=== PATIENT | female | born 1980 | race Caucasian/White ===

== ENCOUNTER 2017-08-16 14:52 | Inpatient (IN) | payer MEDICARE ==
[2017-08-16 16:00] LABS: ABS Basophils 0 10^3/ul (0-0.2); ABS Eosinophils 0 10^3/ul (0-0.6); ABS Lymphocytes 1.6 10^3/ul (1.0-4.8); ABS Monocytes 0.5 10^3/ul (0-0.8); ABS Neutrophils 3.3 10^3/ul (1.5-7.7); ABS Nucleated RBC 0 10^3/ul; Eosinophil % 0.4 % (0-6); Hematocrit 37 % (35-47); Hemoglobin 12.1 g/dl (12.0-16.0); Lymphocyte % 29.6 % (25-47); Mean Corpuscular HGB Conc 33 g/dl (31-36); Mean Corpuscular Hemoglobin 29 pg (27-31); Mean Corpuscular Volume 87 fL (80-97); Mean Platelet Volume 8.1 um3 (7.4-10.4); Nucleated Red Blood Cells % 0; Platelet Count 191 10^3/ul (150-450); Red Blood Count 4.18 10^6/ul (4.0-5.4); Red Cell Distribution Width 15 % (10.5-15); White Blood Count 5.5 10^3/ul (3.5-10.8)
[2017-08-16 16:19] LABS: EGFR Non-African American 110.4 (>60)
[2017-08-16 16:53] LABS: Urine Appearance Clear; Urine Blood Negative (Negative); Urine Color Straw; Urine Ketones Negative (Negative); Urine Protein Negative (Negative); Urine Specific Gravity 1.003 (1.010-1.030); Urine Urobilinogen Negative (Negative)
--- NOTE | 2017-08-16 21:38 | ED ---
Rosa Elizabeth Gabriel, scribed for Nazario Mahoney MD on 08/16/17 at 1603 . Psychiatric Complaint - HPI Summary HPI Summary: This patient is a 37 year old F BIBA to [facility] with a chief complaint of anxiety after attempting to detox from prescriptions. She recently had a falling out with her fianc/rep payee and moved in with her sister. Her sister is now her rep payee. Pt has been staying in a hotel for the past 3 days after being kicked out of her apartment. Today the pts sister called the police claiming she has suicidal thoughts and needed to be seen for mental health. Patient denies SI and HI. LNMP 2 weeks ago. - History Of Current Complaint Chief Complaint: EDMentalHealth Time Seen by Provider: 08/16/17 15:22 Hx Obtained From: Patient Onset/Duration: Still Present Timing: Constant Severity Initially: Moderate Severity Currently: Moderate Character: Manic Aggravating Factor(s): Recent Stress, Medication Non-compliance Related History: Positive For: Prior Psychiatric Issues Has Suicidal: Denies: Thoughts, With A Plan Has Homicidal: Denies: Thoughts, With A Plan - Allergies/Home Medications Allergies/Adverse Reactions: Allergies Allergy/AdvReac Type Severity Reaction Status Date / Time No Known Allergies Allergy Verified 08/16/17 15:36 Home Medications: Home Medications LORazepam TAB(*) [Ativan 0.5 MG TAB (*)] 0.5 mg PO TID PRN 08/16/17 [History Confirmed 08/16/17] Prazosin CAP* [Minipress CAP*] 1 mg PO DAILY 08/16/17 [History Confirmed ] Sertraline* [Zoloft*] 25 mg PO DAILY 08/16/17 [History Confirmed 08/16/17] PMH/Surg Hx/FS Hx/Imm Hx Cardiovascular History: Denies: Hx Pacemaker/ICD Respiratory History: Denies: Hx Chronic Obstructive Pulmonary Disease (COPD) GI History: Denies: Hx Irritable Bowel Musculoskeletal History: Denies: Hx Orthopedic Injury Psychiatric History: Reports: Hx Anxiety, Hx Depression, Hx Post Traumatic Stress Disorder, Other Psychiatric Issues/Disorders - sleep disorder Infectious Disease History: No Infectious Disease History: Denies: Traveled Outside the [place] in Last 30 Days - Family History Known Family History: Negative: Respiratory Disease, Seizure Disorder - Social History Occupation: Unemployed Lives: With Family Alcohol Use: Rare Substance Use Type: Reports: Marijuana Substance Use Comment - Amount & Last Used: medical marijuana smokes topical and oral Smoking Status (MU): Former Smoker Review of Systems Negative: Slurred Speech Psychological: Other - NEGATIVE SI and HI All Other Systems Reviewed And Are Negative: Yes Physical Exam - Summary Physical Exam Summary: Appearance: Well appearing, no pain distress, manic affect, tearful Skin: warm, dry, reflects adequate perfusion Neurotic excoriations on face and lower back Head/face: normal Eyes: EOMI, TIMOTHY ENT: normal Neck: supple, non-tender Respiratory: CTA, breath sounds present Cardiovascular: RRR, pulses symmetrical Abdomen: non-tender, soft Bowel Sounds: present Musculoskeletal: normal, strength/ROM intact Neuro: normal, sensory motor intact, A&Ox3 Triage Information Reviewed: Yes Vital Signs On Initial Exam: Initial Vitals Temp Pulse Resp BP Pulse Ox 99.2 F 95 23 125/97 99 08/16/17 15:30 08/16/17 15:30 08/16/17 15:30 08/16/17 15:30 08/16/17 15:30 Vital Signs Reviewed: Yes Diagnostics - Vital Signs Vital Signs Temp Pulse Resp BP Pulse Ox 08/16/17 15:30 99.2 F 95 23 125/97 99 - Laboratory Lab Results: Lab Results 08/16/17 08/16/17 08/16/17 Range/Units 15:18 15:18 15:45 WBC (3.5-10.8) 10^3/ul RBC (4.0-5.4) 10^6/ul Hgb (12.0-16.0) g/dl Hct (35-47) % MCV (80-97) fL MCH (27-31) pg MCHC (31-36) g/dl RDW (10.5-15) % Plt Count (150-450) 10^3/ul MPV (7.4-10.4) um3 Neut % (Auto) (38-83) % Lymph % (Auto) (25-47) % Thurston % (Auto) (0-7) % Eos % (Auto) (0-6) % Baso % (Auto) (0-2) % Absolute Neuts (auto) (1.5-7.7) 10^3/ul Absolute Lymphs (auto) (1.0-4.8) 10^3/ul Absolute Monos (auto) (0-0.8) 10^3/ul Absolute Eos (auto) (0-0.6) 10^3/ul Absolute Basos (auto) (0-0.2) 10^3/ul Absolute Nucleated RBC 10^3/ul Nucleated RBC % Sodium 140 (139-145) mmol/L Potassium 3.4 L (3.5-5.0) mmol/L Chloride 104 (101-111) mmol/L Carbon Dioxide 23 (22-32) mmol/L Anion Gap 13 H (2-11) mmol/L BUN 6 (6-24) mg/dL Creatinine 0.61 (0.51-0.95) mg/dL Est GFR ( Amer) 141.9 (>60) Est GFR (Non-Af Amer) 110.4 (>60) BUN/Creatinine Ratio 9.8 (8-20) Glucose 103 H (70-100) mg/dL Calcium 9.4 (8.6-10.3) mg/dL Total Bilirubin 0.30 (0.2-1.0) mg/dL AST 25 (13-39) U/L ALT 29 (7-52) U/L Alkaline Phosphatase 67 (34-104) U/L Total Protein 7.1 (6.4-8.9) g/dL Albumin 3.9 (3.2-5.2) g/dL Globulin 3.2 (2-4) g/dL Albumin/Globulin Ratio 1.2 (1-3) TSH 0.60 (0.34-5.60) mcIU/mL Beta HCG, Quant < 0.60 mIU/mL Urine Color Straw Urine Appearance Clear Urine pH 6.0 (5-9) Ur Specific [place] 1.003 L (1.010-1.030) Urine Protein Negative (Negative) Urine Ketones Negative (Negative) Urine Blood Negative (Negative) Urine Nitrate Negative (Negative) Urine Bilirubin Negative (Negative) Urine Urobilinogen Negative (Negative) Ur Leukocyte Esterase Negative (Negative) Urine Glucose Negative (Negative) Salicylates < 2.50 (<30) mg/dL Urine Opiates Screen None detected (None Detect) Acetaminophen < 15 mcg/mL Ur Barbiturates Screen None detected (None Detect) Ur Phencyclidine Scrn None detected (None Detect) Ur Amphetamines Screen None detected (None Detect) U Benzodiazepines Scrn None detected (None Detect) Urine Cocaine Screen None detected (None Detect) U Cannabinoids Screen Presumptive positive A (None Detect) Serum Alcohol 96 H (<10) mg/dL 08/16/17 Range/Units 15:45 WBC 5.5 (3.5-10.8) 10^3/ul RBC 4.18 (4.0-5.4) 10^6/ul Hgb 12.1 (12.0-16.0) g/dl Hct 37 (35-47) % MCV 87 (80-97) fL MCH 29 (27-31) pg MCHC 33 (31-36) g/dl RDW 15 (10.5-15) % Plt Count 191 (150-450) 10^3/ul MPV 8.1 (7.4-10.4) um3 Neut % (Auto) 60.7 (38-83) % Lymph % (Auto) 29.6 (25-47) % Thurston % (Auto) 8.7 H (0-7) % Eos % (Auto) 0.4 (0-6) % Baso % (Auto) 0.6 (0-2) % Absolute Neuts (auto) 3.3 (1.5-7.7) 10^3/ul Absolute Lymphs (auto) 1.6 (1.0-4.8) 10^3/ul Absolute Monos (auto) 0.5 (0-0.8) 10^3/ul Absolute Eos (auto) 0 (0-0.6) 10^3/ul Absolute Basos (auto) 0 (0-0.2) 10^3/ul Absolute Nucleated RBC 0 10^3/ul Nucleated RBC % 0 Sodium (139-145) mmol/L Potassium (3.5-5.0) mmol/L Chloride (101-111) mmol/L Carbon Dioxide (22-32) mmol/L Anion Gap (2-11) mmol/L BUN (6-24) mg/dL Creatinine (0.51-0.95) mg/dL Est GFR ( Amer) (>60) Est GFR (Non-Af Amer) (>60) BUN/Creatinine Ratio (8-20) Glucose (70-100) mg/dL Calcium (8.6-10.3) mg/dL Total Bilirubin (0.2-1.0) mg/dL AST (13-39) U/L ALT (7-52) U/L Alkaline Phosphatase (34-104) U/L Total Protein (6.4-8.9) g/dL Albumin (3.2-5.2) g/dL Globulin (2-4) g/dL Albumin/Globulin Ratio (1-3) TSH (0.34-5.60) mcIU/mL Beta HCG, Quant mIU/mL Urine Color Urine Appearance Urine pH (5-9) Ur Specific [place] (1.010-1.030) Urine Protein (Negative) Urine Ketones (Negative) Urine Blood (Negative) Urine Nitrate (Negative) Urine Bilirubin (Negative) Urine Urobilinogen (Negative) Ur Leukocyte Esterase (Negative) Urine Glucose (Negative) Salicylates (<30) mg/dL Urine Opiates Screen (None Detect) Acetaminophen mcg/mL Ur Barbiturates Screen (None Detect) Ur Phencyclidine Scrn (None Detect) Ur Amphetamines Screen (None Detect) U Benzodiazepines Scrn (None Detect) Urine Cocaine Screen (None Detect) U Cannabinoids Screen (None Detect) Serum Alcohol (<10) mg/dL Result Diagrams: 08/16/17 15:45 08/16/17 15:45 Lab Statement: Any lab studies that have been ordered have been reviewed, and results considered in the medical decision making process. Re-Evaluation - Re-Evaluation First Eval Re-Evaluation Time: 21:35 Change: Worse Comment: The patients sister called and stated the dairy manager from the hotel is not allowing her to return do to her marijuana use in the hotel. The sister is taking care of her cat tonight and is removing herself as her rep payee. Course/Dx - Course Course Of Treatment: PT WITH ETOH IN SYSTEM BUT NO CLINICAL INTOX. EVAL PERFORMED. UNABLE TO GET COLLATERAL FROM SISTER. SISTER STATES PT UNABLE TO GO BACK TO HOTEL SHE HAS BEEN SMOKING POT, STAVE MACHINE TENDER WONT LET HER BACK. SISTER ALSO HAD HERSELF REMOVED HER REP PAYEE. TO OBSERVE THRU NIGHT, DISPO IN AM. SIGNED OUT TO DR MCALLISTER. - Differential Dx/Clinical Impression Provider Diagnosis: Mood disorder, PTSD (post-traumatic stress disorder), Neurotic excoriations - Physician Notifications Discussed Care Of Patient With: Good Mcallister Discharge - Sign-Out/Discharge Documenting (check all that apply): Sign-Out Patient Signing out patient TO: Good Mcallister - Discharge Plan Condition: Stable Discharge Disposition Comment: Sign out to Dr Mcallister Referrals: No Primary Care Phys,NOPCP [Primary Care Provider] - - Billing Disposition and Condition Condition: STABLE The documentation as recorded by the Rosa salas Gabriel accurately reflects the service I personally performed and the decisions made by me, Nazario Mahoney MD.
--- NOTE | 2017-08-16 22:23 | ED ---
Domingo Elizabeth Rebecca, scribed for Good Mcallister MD on 08/16/17 at 2213 . Progress - Progress Note Progress Note: Pt was signed out by Dr. Mahoney, pending disposition, awaiting MHE. Course/Dx - Course Course Of Treatment: Pt was signed out by Dr. Mahoney, pending disposition, awaiting MHE. Upon completion of MHE and consultation with Dr. Thornton, it has been determined that the pt will be admitted with Dx of depression. - Diagnoses Provider Diagnoses: Depression Discharge - Sign-Out/Discharge Documenting (check all that apply): Discharge - Admitted to psych - Discharge Plan Condition: Stable Disposition: PSYCHIATRIC FACILITY[facility] Referrals: No Primary Care Phys,NOPCP [Primary Care Provider] - The documentation as recorded by the Domingo salas Rebecca accurately reflects the service I personally performed and the decisions made by Esvin jose Abdul, MD.
[2017-08-16] MEDS ORDERED: LORazepam TAB(*) 0.5 MG PO PRN (23:40)
[2017-08-16] MEDS ORDERED: Acetaminophen TAB* 325 MG PO PRN (23:40)
[2017-08-16] MEDS ORDERED: Al Hydrox/Mg Hydrox/Simet LIQ* 30 ML UDC PO PRN (23:40)
[2017-08-16] MEDS ORDERED: Prazosin CAP* 1 MG ONE (23:41)
[2017-08-16] MEDS ORDERED: LORazepam TAB(*) 0.5 MG ONE (23:41)
[2017-08-16] MEDS ORDERED: Sertraline* 25 MG TAB ONE (23:42)
[2017-08-17] MEDS: Vitamin THERAPEUTIC TAB PO SCH (08:43)
[2017-08-17] MEDS ORDERED: Prazosin CAP* 1 MG PO SCH ×2 (09:00→21:00)
[2017-08-17] MEDS: Gabapentin CAP(*) 100 MG PO SCH ×3 (12:50→21:55)
[2017-08-17] MEDS: Sertraline* 50 MG TAB PO SCH (12:51)
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
[2017-08-17] MEDS: hydrOXYzine HCL TAB* 50 MG PO PRN (21:54)
[2017-08-17] MEDS: Prazosin CAP* 1 MG PO SCH (21:55)
[2017-08-18] MEDS: Gabapentin CAP(*) 100 MG PO SCH ×3 (08:09→21:26)
[2017-08-18] MEDS: Sertraline* 50 MG TAB PO SCH (08:09)
[2017-08-18] MEDS: Vitamin THERAPEUTIC TAB PO SCH (13:05)
--- NOTE | 2017-08-18 16:34 | PN ---
Subjective - Subjective Subjective: She woke up feeling "horrible," blames the combination of prazosin, gabapentin and hydroxyzine and requests decreasing the dose of prazosin. Mood is good, she denies SI. Per staff, she is adherent to unit's routines. Objective - Appearance Appearance: Healthy Appearing Dysmorphic Features: No Hygiene: Normal Grooming: Well Kept - Behavior Psychomotor Activities: Normal Exhibits Abnormal Movement: No - Attitude and Relatedness Attitude and Relatedness: Appropriate Eye Contact: Fair - Speech Quality: Unpressured Latencies: Normal Quantity: Appropriate - Mood Patient's Decription of Mood: "Okay" - Affect Observed Affect: Non-labile Affect Consistent with: Euthymia - Thought Process Patient's Thought Process: Coherent, Goal Directed Thought Content: No Passive Wish, No Suicidal Planning, No Homicidal Ideation, No Paranoid Ideation - Sensorium Experiencing Hallucinations: No, Sensorium is Clear - Level of Consciousness Level of Consciousness: Alert Orientation: Yes Intact - Impulse Control Impulse Control: Intact - Insight and Judgement Insight and Judgement: Fair - Group Participation Particating in Group Activities: Yes - Medication Management Medication Management Adherence: Yes Assessment - Assessment Merits Inpatient Hospitalization: Consolidate Improvements, For Discharge Planning Inpatient DSM-V Dx: F43.10 Clinical Impression: Stabilizing in this structured setting with subjective improvement in mood, absence of SI. Complains of grogginess upon waking. She needs continued admission for consolidation. Plan - Plan Treatment Plan: Name: MATTIE MANSFIELD Birthdate: 1980 [id number] Continued Medication Management: Continue Outpt Medication Medications: Current Medications Acetaminophen (Tylenol Tab*) 650 mg PO Q4H PRN PRN Reason: PAIN or TEMP > 101 F Al Hydrox/Mg Hydrox/Simethicone (Maalox Plus*) 30 ml PO Q4H PRN PRN Reason: INDIGESTION Gabapentin (Neurontin Cap(*)) 100 mg PO TID [facility] Last Admin: 08/18/17 13:06 Dose: 100 mg Hydroxyzine HCl (Atarax Tab*) 50 mg PO Q4H PRN PRN Reason: anxiety/agitation Last Admin: 08/17/17 21:54 Dose: 50 mg Multivitamins (Theragran Tab*) 1 tab PO DAILY [facility] Last Admin: 08/18/17 13:05 Dose: 1 tab Prazosin HCl (Minipress Cap*) 4 mg PO BEDTIME [facility] Last Admin: 08/17/17 21:55 Dose: 4 mg Sertraline HCl (Zoloft*) 50 mg PO DAILY [facility] Last Admin: 08/18/17 08:09 Dose: 50 mg - Discharge Plan Discharge Plan: Outpatient Follow Up Outpatient Program: [id number]
[2017-08-18] MEDS: Prazosin CAP* 1 MG PO SCH (21:25)
[2017-08-18] MEDS: hydrOXYzine HCL TAB* 50 MG PO PRN (22:08)
[2017-08-19] MEDS: Sertraline* 50 MG TAB PO SCH (08:41)
[2017-08-19] MEDS: Gabapentin CAP(*) 100 MG PO SCH ×3 (08:43→21:27)
[2017-08-19] MEDS: Vitamin THERAPEUTIC TAB PO SCH ×2 (09:43→12:34)
[2017-08-19] MEDS: Prazosin CAP* 1 MG PO SCH (21:27)
[2017-08-20] MEDS: Sertraline* 50 MG TAB PO SCH (08:16)
[2017-08-20] MEDS: Gabapentin CAP(*) 100 MG PO SCH ×3 (08:16→20:24)
[2017-08-20] MEDS: Vitamin THERAPEUTIC TAB PO SCH (09:30)
--- NOTE | 2017-08-20 16:05 | PN ---
Subjective - Subjective Service Type: 41222 Hosp care 25 min moderate complexity Subjective: Patient is reading DSM 5 upon approach and states she is interested in exclusion criteria for excoriation d/o. Patient has a list of things to ask about. Patient endorses efficacy from gabapentin and denies side effects. She states she has relief from night terrors with prazosin but requests ativan for nightmares. Patient states she wants to wants to have a family meeting with her sister, Regi, in order to remain amicable. She also is concerned about being able to keep her cat when discharged. She becomes tearful during topic of her cat. Patient is observed to be social with select peers. She is participating in unit routines and in behavioral control. Pcat Instructor left voicemail for her outpatient PCP, Dr Stefany Hollins. Also, attempted to call her previous outpatient psychiatrist, Dr Liyah Gil but am having difficulty connecting to a live person. Objective - Appearance Appearance: Obese Dysmorphic Features: Yes Hygiene: Normal Grooming: Well Kept - Behavior Psychomotor Activities: Normal Exhibits Abnormal Movement: No - Attitude and Relatedness Attitude and Relatedness: Needy Eye Contact: Good - Speech Quality: Unpressured Latencies: Normal Quantity: Appropriate - Mood Patient's Decription of Mood: "Sad" - Affect Observed Affect: Expansive Affect Consistent with: Euthymia - Thought Process Patient's Thought Process: Coherent, Goal Directed, Circumstantial Thought Content: No Passive Wish, No Suicidal Planning, No Homicidal Ideation, No Paranoid Ideation - Sensorium Experiencing Hallucinations: No, Sensorium is Clear Type of Hallucinations: Visual: No, Auditory: No, Command: No - Level of Consciousness Level of Consciousness: Alert Orientation: Yes Intact, Yes Orientated to Time, Yes Orientated to Place, Yes Orientated to Person - Impulse Control Impulse Control: Tenuous - Insight and Judgement Insight and Judgement: Poor - Group Participation Particating in Group Activities: Yes - Medication Management Medication Management Adherence: Yes Assessment - Assessment Merits Inpatient Hospitalization: For Immediate Safety, For Stabilization, Consolidate Improvements, Pending Safe DC Plan Inpatient DSM-V Dx: F43.10 Clinical Impression: 37yo white female, , undomiciled and receives disability income. Patient recently relocated to [place] from [facility]. She was living with her sister but was evicted from an apartment and hotel. She and her siblings have an extensive trauma history, including involvement in child pornography and cults. Patient has been engaging in increased substance use and self-harm behaviors. She is unsafe to care for herself at this time. Plan - Plan Treatment Plan: Name: MATTIE MANSFIELD Birthdate: 1980 [id number] continue acute intensive psychiatric treatment. decrease to q30min observation and allow computer use and staff pass. Continue to attempt to gain psychiatric and medical history from previous providers. discharge planning to include outpatient referrals. Continued Medication Management: Different Medication Medications: Current Medications Acetaminophen (Tylenol Tab*) 650 mg PO Q4H PRN PRN Reason: PAIN or TEMP > 101 F Al Hydrox/Mg Hydrox/Simethicone (Maalox Plus*) 30 ml PO Q4H PRN PRN Reason: INDIGESTION Gabapentin (Neurontin Cap(*)) 100 mg PO TID [facility] Last Admin: 08/20/17 14:08 Dose: 100 mg Hydroxyzine HCl (Atarax Tab*) 50 mg PO Q4H PRN PRN Reason: anxiety/agitation Last Admin: 08/18/17 22:08 Dose: 50 mg Multivitamins (Theragran Tab*) 1 tab PO DAILY [facility] Last Admin: 08/20/17 09:30 Dose: Not Given Prazosin HCl (Minipress Cap*) 4 mg PO BEDTIME [facility] Last Admin: 08/19/17 21:27 Dose: 4 mg Sertraline HCl (Zoloft*) 50 mg PO DAILY [facility] Last Admin: 08/20/17 08:16 Dose: 50 mg - Discharge Plan Discharge Plan: Outpatient Follow Up Outpatient Program: [facility]
[2017-08-20] MEDS: Prazosin CAP* 1 MG PO SCH (20:25)
[2017-08-21] MEDS: Sertraline* 50 MG TAB PO SCH (10:01)
[2017-08-21] MEDS: Gabapentin CAP(*) 100 MG PO SCH ×3 (10:01→21:36)
--- NOTE | 2017-08-21 11:27 | PN ---
MHU: Group Therapy Note - Service Type Service Type: [id number] Group Psychotherapy - Cognitive Behavioral Group Therapy ( CBT):Patient was attentive and participatory in CBT programming this morning, and remained in good behavioral control. Patient expressed positive insights regarding relevant treatment interventions and goals.
[2017-08-21] MEDS: Vitamin THERAPEUTIC TAB PO SCH (12:22)
--- NOTE | 2017-08-21 13:57 | PN ---
Subjective - Subjective Service Type: 91968 Hosp care 25 min moderate complexity Subjective: Spoke with patient's most recent PCP in [facility], Dr Stefany Hollins at [phone]. She reports a history of patient's episodes of classic radha symptoms and obsessive compulsive behaviors. She states Mattie tends to minimize psychiatric hospitalizations and makes impulsive and significant life decisions. She verifies that patient's previous S.O., Alex was a supportive person to her. She was not aware that Mattie is no longer in [place]. Patient is cooperative and in behavioral control. She is adherent to unit routines and pleasant with staff and peers. She is tearful when discussing relationships but able to utilize therapeutic interventions. Objective - Appearance Appearance: Obese Dysmorphic Features: Yes Hygiene: Normal Grooming: Well Kept - Behavior Psychomotor Activities: Normal Exhibits Abnormal Movement: No - Attitude and Relatedness Attitude and Relatedness: Cooperative Eye Contact: Good - Speech Quality: Unpressured Latencies: Normal Quantity: Appropriate - Mood Patient's Decription of Mood: "Anxious" - Affect Observed Affect: Expansive Affect Consistent with: Dysphoria - Thought Process Patient's Thought Process: Coherent, Goal Directed, Circumstantial Thought Content: Yes Paranoid Ideation, No Passive Wish, No Suicidal Planning, No Homicidal Ideation - Sensorium Experiencing Hallucinations: No, Sensorium is Clear Type of Hallucinations: Visual: No, Auditory: No, Command: No - Level of Consciousness Level of Consciousness: Alert Orientation: Yes Intact, Yes Orientated to Time, Yes Orientated to Place, Yes Orientated to Person - Impulse Control Impulse Control: Intact - in supportive setting - Insight and Judgement Insight and Judgement: Fair - Group Participation Particating in Group Activities: Yes - Medication Management Medication Management Adherence: Yes Assessment - Assessment Merits Inpatient Hospitalization: For Immediate Safety, For Stabilization, Consolidate Improvements Inpatient DSM-V Dx: F43.10 Clinical Impression: 37yo white female, , undomiciled and receives disability income. Patient recently relocated to [place] from [facility]. She was living with her sister but was evicted from an apartment and hotel. She and her siblings have an extensive trauma history, including involvement in child pornography and cults. Patient has been engaging in increased substance use and self-harm behaviors. She is unsafe to care for herself at this time. Plan - Plan Treatment Plan: Name: MATTIE MANSFIELD Birthdate: 1980 [id number] continue acute intensive psychiatric treatment. decrease to q30min observation and allow computer use and staff pass. Patient declines suggestion of mood stabilizer medication. discharge planning to include outpatient referrals. Continued Medication Management: Start Medication Medications: Current Medications Acetaminophen (Tylenol Tab*) 650 mg PO Q4H PRN PRN Reason: PAIN or TEMP > 101 F Al Hydrox/Mg Hydrox/Simethicone (Maalox Plus*) 30 ml PO Q4H PRN PRN Reason: INDIGESTION Gabapentin (Neurontin Cap(*)) 100 mg PO TID [facility] Last Admin: 08/21/17 10:01 Dose: 100 mg Hydroxyzine HCl (Atarax Tab*) 50 mg PO Q4H PRN PRN Reason: anxiety/agitation Last Admin: 08/18/17 22:08 Dose: 50 mg Multivitamins (Theragran Tab*) 1 tab PO DAILY [facility] Last Admin: 08/21/17 12:22 Dose: 1 tab Prazosin HCl (Minipress Cap*) 4 mg PO BEDTIME [facility] Last Admin: 08/20/17 20:25 Dose: 4 mg Sertraline HCl (Zoloft*) 50 mg PO DAILY [facility] Last Admin: 08/21/17 10:01 Dose: 50 mg - Discharge Plan Discharge Plan: Outpatient [facility]
[2017-08-21] MEDS: Prazosin CAP* 1 MG PO SCH (21:36)
[2017-08-22] MEDS: Gabapentin CAP(*) 100 MG PO SCH ×3 (10:00→21:34)
[2017-08-22] MEDS: Sertraline* 50 MG TAB PO SCH (10:00)
[2017-08-22] MEDS: Vitamin THERAPEUTIC TAB PO SCH (10:00)
--- NOTE | 2017-08-22 17:40 | PN ---
Subjective - Subjective Service Type: 66370 Hosp care 15 min low complexity Subjective: Patient presents as calm and euthymic. She is easily distressed and tearful when discussing topics that are loosely related to her ex-fiancee, Alex. Patient has many questions about local resources and how to acclimate to this community. Patient continues to endorse desire to have an amicable with her sister, Regi, and requests that we organize a family meeting or phone conference. She requests small dose of lorazepam at bedtime for nightmares. Mattie strongly advocates for herself that she does not use alcohol or marijuana when taking prescription medications. Objective - Appearance Appearance: Obese Dysmorphic Features: Yes Hygiene: Normal Grooming: Well Kept - Behavior Psychomotor Activities: Normal Exhibits Abnormal Movement: No - Attitude and Relatedness Eye Contact: Good - Speech Quality: Unpressured Latencies: Normal Quantity: Appropriate - Mood Patient's Decription of Mood: "Anxious" - Affect Observed Affect: Expansive Affect Consistent with: Euthymia - Thought Process Patient's Thought Process: Tangential, Circumstantial Thought Content: No Passive Wish, No Suicidal Planning, No Homicidal Ideation, No Paranoid Ideation - Sensorium Experiencing Hallucinations: No, Sensorium is Clear Type of Hallucinations: Visual: No, Auditory: No, Command: No - Level of Consciousness Level of Consciousness: Alert Orientation: Yes Intact, Yes Orientated to Time, Yes Orientated to Place, Yes Orientated to Person - Impulse Control Impulse Control: Tenuous - Insight and Judgement Insight and Judgement: Fair - Group Participation Particating in Group Activities: Yes - Medication Management Medication Management Adherence: Yes Assessment - Assessment Merits Inpatient Hospitalization: For Immediate Safety, Consolidate Improvements , Pending Safe DC Plan Inpatient DSM-V Dx: F43.10 Clinical Impression: 37yo white female, , undomiciled and receives disability income. Patient recently relocated to [place] from [facility]. She was living with her sister but was evicted from an apartment and hotel. She and her siblings have an extensive trauma history, including involvement in child pornography and cults. Patient has been engaging in increased substance use and self-harm behaviors. She is unsafe to care for herself at this time. Plan - Plan Treatment Plan: Name: MATTIE MANSFIELD Birthdate: 1980 [id number] continue acute intensive psychiatric treatment. decrease to q30min observation and allow computer use and staff pass. Patient continues to decline suggestion of mood stabilizer medication. add lorazepam at bedtime per patient request. discharge planning to include outpatient referrals. Continued Medication Management: Different Medication Medications: Current Medications Acetaminophen (Tylenol Tab*) 650 mg PO Q4H PRN PRN Reason: PAIN or TEMP > 101 F Al Hydrox/Mg Hydrox/Simethicone (Maalox Plus*) 30 ml PO Q4H PRN PRN Reason: INDIGESTION Gabapentin (Neurontin Cap(*)) 100 mg PO TID [facility] Last Admin: 08/22/17 15:18 Dose: 100 mg Hydroxyzine HCl (Atarax Tab*) 50 mg PO Q4H PRN PRN Reason: anxiety/agitation Last Admin: 08/18/17 22:08 Dose: 50 mg Multivitamins (Theragran Tab*) 1 tab PO DAILY [facility] Last Admin: 08/22/17 10:00 Dose: 1 tab Prazosin HCl (Minipress Cap*) 4 mg PO BEDTIME [facility] Last Admin: 08/21/17 21:36 Dose: 4 mg Sertraline HCl (Zoloft*) 50 mg PO DAILY [facility] Last Admin: 08/22/17 10:00 Dose: 50 mg - Discharge Plan Discharge Plan: Outpatient Follow Up Outpatient Program: [facility]
[2017-08-22] MEDS: Prazosin CAP* 1 MG PO SCH (21:34)
[2017-08-23] MEDS: Sertraline* 50 MG TAB PO SCH (08:06)
[2017-08-23] MEDS: Gabapentin CAP(*) 100 MG PO SCH ×3 (08:06→21:00)
--- NOTE | 2017-08-23 11:15 | PN ---
MHU: Group Therapy Note - Service Type Service Type: [id number] Group Psychotherapy - Cognitive Behavioral Group Therapy ( CBT):Patient was attentive and participatory in CBT programming this morning, and remained in good behavioral control. Patient expressed positive insights regarding relevant treatment interventions and goals.
[2017-08-23] MEDS: Vitamin THERAPEUTIC TAB PO SCH (14:06)
--- NOTE | 2017-08-23 16:17 | PN ---
MHU: Group Therapy Note - Service Type Service Type: [id number] Group Psychotherapy - Medication Education Group: Patient was attentive and participatory in group, and remained in good behavioral control. Patient expressed positive insights regarding relevant treatment interventions. Patient stated understanding of material discussed and had appropriate questions.
[2017-08-23] MEDS: LORazepam TAB(*) 1 MG PO PRN (20:59)
[2017-08-23] MEDS: Prazosin CAP* 1 MG PO SCH (21:00)
[2017-08-24] MEDS: Gabapentin CAP(*) 100 MG PO SCH ×3 (08:39→21:55)
[2017-08-24] MEDS: Vitamin THERAPEUTIC TAB PO SCH (08:40)
[2017-08-24] MEDS: Sertraline* 50 MG TAB PO SCH (08:40)
--- NOTE | 2017-08-24 13:14 | PN ---
MHU: Group Therapy Note - Service Type Service Type: 20509 Group Psychotherapy - Cognitive Behavioral Group Therapy ( CBT):Patient was attentive and participatory in CBT programming this morning, and remained in good behavioral control. Patient expressed positive insights regarding relevant treatment interventions and goals.
--- NOTE | 2017-08-24 15:48 | PN ---
Subjective - Subjective Date of Service: 08/24/17 Service Type: 85550 Hosp care 35 min high complexity Subjective: Patient expresses anxiety about meeting with her sister today. She perseverates on perceived abandonment and her sister unfairly calling the police. Patient and her sister, Regi, met with presence of Mere Araujo, [employer]ATOR [employer] and machine sign writer. Patient was calm and in behavioral control. At times, she was elevated and able to express self calmly with staff prompts and suggestions. Both patient and her sister identified steps to repairing their relationship. Objective - Appearance Appearance: Obese Dysmorphic Features: Yes Hygiene: Normal Grooming: Well Kept - Behavior Psychomotor Activities: Normal Exhibits Abnormal Movement: No - Attitude and Relatedness Attitude and Relatedness: Cooperative Eye Contact: Good - Speech Quality: Pressured Latencies: Normal Quantity: Appropriate - Mood Patient's Decription of Mood: "Anxious" - Affect Observed Affect: Expansive Affect Consistent with: Dysphoria - Thought Process Patient's Thought Process: Circumstantial Thought Content: No Passive Wish, No Suicidal Planning, No Homicidal Ideation, No Paranoid Ideation - Sensorium Experiencing Hallucinations: No, Sensorium is Clear Type of Hallucinations: Visual: No, Auditory: No, Command: No - Level of Consciousness Level of Consciousness: Alert Orientation: Yes Intact, Yes Orientated to Time, Yes Orientated to Place, Yes Orientated to Person - Impulse Control Impulse Control: Intact - Insight and Judgement Insight and Judgement: Fair - Group Participation Particating in Group Activities: Yes - Medication Management Medication Management Adherence: Yes Assessment - Assessment Merits Inpatient Hospitalization: For Immediate Safety, For Stabilization, Consolidate Improvements, Pending Safe DC Plan Inpatient DSM-V Dx: F43.10 Clinical Impression: 37yo white female, , undomiciled and receives disability income. Patient recently relocated to [place] from [facility]. She was living with her sister but was evicted from an apartment and hotel. She and her siblings have an extensive trauma history, including involvement in child pornography and cults. Patient has been engaging in increased substance use and self-harm behaviors. She is responding well to medications and therapeutic interventions. Discharge tentative, 08/27/17. Plan - Plan Treatment Plan: Name: MATTIE MANSFIELD Birthdate: 1980 [id number] continue acute intensive psychiatric treatment. decrease to q30min observation and allow computer use and staff pass. Patient continues to decline suggestion of mood stabilizer medication. add lorazepam at bedtime per patient request. discharge planning to include outpatient referrals. Continued Medication Management: Start Medication Medications: Current Medications Acetaminophen (Tylenol Tab*) 650 mg PO Q4H PRN PRN Reason: PAIN or TEMP > 101 F Al Hydrox/Mg Hydrox/Simethicone (Maalox Plus*) 30 ml PO Q4H PRN PRN Reason: INDIGESTION Gabapentin (Neurontin Cap(*)) 100 mg PO TID [facility] Last Admin: 08/24/17 14:22 Dose: 100 mg Hydroxyzine HCl (Atarax Tab*) 50 mg PO Q4H PRN PRN Reason: anxiety/agitation Last Admin: 08/18/17 22:08 Dose: 50 mg Lorazepam (Ativan Tab(*)) 1 mg PO BEDTIME PRN PRN Reason: ANXIETY Last Admin: 08/23/17 20:59 Dose: 1 mg Multivitamins (Theragran Tab*) 1 tab PO DAILY [facility] Last Admin: 08/24/17 08:40 Dose: 1 tab Prazosin HCl (Minipress Cap*) 4 mg PO BEDTIME [facility] Last Admin: 08/23/17 21:00 Dose: 4 mg Sertraline HCl (Zoloft*) 50 mg PO DAILY [facility] Last Admin: 08/24/17 08:40 Dose: 50 mg - Discharge Plan Discharge Plan: Outpatient Follow Up Outpatient Program: [facility]
[2017-08-24] MEDS: LORazepam TAB(*) 1 MG PO PRN (21:54)
[2017-08-24] MEDS: Prazosin CAP* 1 MG PO SCH (21:54)
[2017-08-25] MEDS: Gabapentin CAP(*) 100 MG PO SCH ×3 (08:14→20:27)
[2017-08-25] MEDS: Sertraline* 50 MG TAB PO SCH (08:14)
[2017-08-25] MEDS: Vitamin THERAPEUTIC TAB PO SCH (08:15)
[2017-08-25] MEDS: LORazepam TAB(*) 1 MG PO PRN (20:27)
[2017-08-25] MEDS: Prazosin CAP* 1 MG PO SCH (20:27)
[2017-08-25] MEDS: hydrOXYzine HCL TAB* 50 MG PO PRN (21:16)
[2017-08-26] MEDS: Gabapentin CAP(*) 100 MG PO SCH ×3 (08:38→20:57)
[2017-08-26] MEDS: Sertraline* 50 MG TAB PO SCH (08:39)
[2017-08-26] MEDS: Vitamin THERAPEUTIC TAB PO SCH (08:39)
[2017-08-26] MEDS: Prazosin CAP* 1 MG PO SCH (20:57)
[2017-08-26] MEDS: LORazepam TAB(*) 1 MG PO PRN (20:59)
[2017-08-27] MEDS: Vitamin THERAPEUTIC TAB PO SCH (08:25)
[2017-08-27] MEDS: Gabapentin CAP(*) 100 MG PO SCH ×3 (08:25→20:49)
[2017-08-27] MEDS: Sertraline* 50 MG TAB PO SCH (08:25)
--- NOTE | 2017-08-27 12:00 | PN ---
Subjective - Subjective Service Type: 88010 Hosp care 25 min moderate complexity Subjective: Patient is tearful, agitated and circumstantial about interactions with her sister, Regi over the weekend. She expresses fear that the order of protection is going to prevent housing options. Patient is also concerned that her sister will not give her cat back to her, which is a significant source of comfort for her. Otherwise, patient is eager to establish services in [facility]. Objective - Appearance Appearance: Obese Dysmorphic Features: Yes Hygiene: Normal Grooming: Well Kept - Behavior Psychomotor Activities: Normal Exhibits Abnormal Movement: No - Attitude and Relatedness Attitude and Relatedness: Cooperative Eye Contact: Good - Speech Quality: Pressured Latencies: Normal Quantity: Copious - Mood Patient's Decription of Mood: "Terrible" - Affect Observed Affect: Expansive Affect Consistent with: Dysphoria - Thought Process Patient's Thought Process: Circumstantial Thought Content: No Passive Wish, No Suicidal Planning, No Homicidal Ideation, No Paranoid Ideation - Sensorium Experiencing Hallucinations: No, Sensorium is Clear Type of Hallucinations: Visual: No, Auditory: No, Command: No - Level of Consciousness Level of Consciousness: Alert Orientation: Yes Intact, Yes Orientated to Time, Yes Orientated to Place, Yes Orientated to Person - Impulse Control Impulse Control: Intact - in structured settin - Insight and Judgement Insight and Judgement: Fair - Group Participation Particating in Group Activities: Yes - Medication Management Medication Management Adherence: Yes Assessment - Assessment Merits Inpatient Hospitalization: For Immediate Safety, For Stabilization, For Discharge Planning, Pending Safe DC Plan Inpatient DSM-V Dx: F43.10 Clinical Impression: 37yo white female, , undomiciled and receives disability income. Patient recently relocated to [place] from [employer] [facility] [employer]. She was living with her sister but was evicted from an apartment and hotel. She and her siblings have an extensive trauma history, including involvement in child pornography and cults. Patient has been engaging in increased substance use and self-harm behaviors. She is responding well to medications and therapeutic interventions. Discharge tentative, 08/27/17. Plan - Plan Treatment Plan: Name: MATTIE MANSFIELD Birthdate: 1980 [id number] continue acute intensive psychiatric treatment. decrease to q30min observation and allow computer use and staff pass. Patient continues to decline suggestion of mood stabilizer medication. add lorazepam at bedtime per patient request. discharge tentative for morning of 08/28/17. Continued Medication Management: Start Medication Medications: Current Medications Acetaminophen (Tylenol Tab*) 650 mg PO Q4H PRN PRN Reason: PAIN or TEMP > 101 F Al Hydrox/Mg Hydrox/Simethicone (Maalox Plus*) 30 ml PO Q4H PRN PRN Reason: INDIGESTION Gabapentin (Neurontin Cap(*)) 100 mg PO TID [facility] Last Admin: 08/27/17 08:25 Dose: 100 mg Hydroxyzine HCl (Atarax Tab*) 50 mg PO Q4H PRN PRN Reason: anxiety/agitation Last Admin: 08/25/17 21:16 Dose: 50 mg Lorazepam (Ativan Tab(*)) 1 mg PO BEDTIME PRN PRN Reason: ANXIETY Last Admin: 08/26/17 20:59 Dose: 1 mg Multivitamins (Theragran Tab*) 1 tab PO DAILY [facility] Last Admin: 08/27/17 08:25 Dose: 1 tab Prazosin HCl (Minipress Cap*) 4 mg PO BEDTIME [facility] Last Admin: 08/26/17 20:57 Dose: 4 mg Sertraline HCl (Zoloft*) 50 mg PO DAILY [facility] Last Admin: 08/27/17 08:25 Dose: 50 mg - Discharge Plan Discharge Plan: Outpatient Follow Up Outpatient Program: [facility]
--- NOTE | 2017-08-27 13:13 | PN ---
MHU: Group Therapy Note - Service Type Service Type: [id number] Group Psychotherapy - Cognitive Behavioral Group Therapy ( CBT):Patient was attentive and participatory in CBT programming this morning, and remained in good behavioral control. Patient expressed positive insights regarding relevant treatment interventions and goals.
[2017-08-27] MEDS: LORazepam TAB(*) 1 MG PO PRN (20:49)
[2017-08-27] MEDS: Prazosin CAP* 1 MG PO SCH (20:50)
[2017-08-28 08:20] VITALS: BP 141/69
[2017-08-28] MEDS: Vitamin THERAPEUTIC TAB PO SCH (09:26)
[2017-08-28] MEDS: Gabapentin CAP(*) 100 MG PO SCH (09:26)
[2017-08-28] MEDS: Sertraline* 50 MG TAB PO SCH (09:27)
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
== END 2017-08-28 10:00 | disposition home or self-care (01) | DRG 882 ==
LOC: ED 14:52 → BSU 23:09
PROVIDERS: ADMIT Psychiatry & Neurology Psychiatry; ATTEND Psychiatry & Neurology Psychiatry
PROC: GZHZZZZ Group Psychotherapy (ICD-10-PCS; principal; 2017-08-27)
DX: F43.10 Post-traumatic stress disorder, unspecified (principal); R45.851 Suicidal ideations; Z68.41 Body mass index [BMI] 40.0-44.9, adult; F12.90 Cannabis use, unspecified, uncomplicated; F41.9 Anxiety disorder, unspecified; F20.9 Schizophrenia, unspecified; F60.3 Borderline personality disorder; E66.9 Obesity, unspecified; F63.3 Trichotillomania; F42.4 Excoriation (skin-picking) disorder; F31.9 Bipolar disorder, unspecified; G47.9 Sleep disorder, unspecified; Z91.5 Personal history of self-harm; Z91.410 Personal history of adult physical and sexual abuse; Z90.49 Acquired absence of other specified parts of digestive tract; Z87.891 Personal history of nicotine dependence; Z72.89 Other problems related to lifestyle; Z56.0 Unemployment, unspecified; Z59.0 Homelessness
CPT/HCPCS: 36415; 80053; 80061; 80307; 80320; 80329; 81003; 83036; 84443; 84702; 85025; 90853; 99222; 99231; 99232; 99233; 99238; 99284; A9270-GY; G0480

== ENCOUNTER 2017-08-31 13:21 | Emergency (ER) | payer MEDICARE, MEDICAID ==
[2017-08-31 14:02] LABS: ABS Basophils 0 10^3/ul (0-0.2); ABS Eosinophils 0 10^3/ul (0-0.6); ABS Lymphocytes 1.4 10^3/ul (1.0-4.8); ABS Monocytes 0.7 10^3/ul (0-0.8); ABS Nucleated RBC 0 10^3/ul; Eosinophil % 0.5 % (0-6); Hematocrit 37 % (35-47); Hemoglobin 12.2 g/dl (12.0-16.0); Lymphocyte % 17.6 % (25-47); Mean Corpuscular HGB Conc 33 g/dl (31-36); Mean Corpuscular Hemoglobin 29 pg (27-31); Mean Corpuscular Volume 87 fL (80-97); Mean Platelet Volume 7.6 um3 (7.4-10.4); Nucleated Red Blood Cells % 0; Platelet Count 241 10^3/ul (150-450); Red Blood Count 4.22 10^6/ul (4.0-5.4); Red Cell Distribution Width 14 % (10.5-15); White Blood Count 8.2 10^3/ul (3.5-10.8)
[2017-08-31 14:24] LABS: EGFR Non-African American 89.7 (>60)
[2017-08-31 15:03] LABS: Urine Appearance Cloudy; Urine Blood 2+ (Negative); Urine Color Yellow; Urine Ketones Negative (Negative); Urine Protein Negative (Negative); Urine Specific Gravity 1.026 (1.010-1.030); Urine Urobilinogen Negative (Negative)
[2017-08-31] MEDS ORDERED: LORazepam TAB(*) 1 MG PO ONE (15:15)
[2017-08-31] MEDS ORDERED: Ibuprofen TAB* 600 MG PO ONE (16:04)
[2017-08-31 19:07] VITALS: BP 00/00
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
== END 2017-08-31 19:06 | disposition home or self-care (01) ==
LOC: ED 13:21
DX: F43.10 Post-traumatic stress disorder, unspecified (principal); R04.0 Epistaxis; R51 Headache; F41.9 Anxiety disorder, unspecified; Z87.891 Personal history of nicotine dependence
CPT/HCPCS: 36415; 80053; 80307; 80320; 80329; 81003; 81015; 84443; 84702; 85025; 87086; 99285; A9270-GY; G0480

== ENCOUNTER 2018-07-12 07:35 | Emergency (ER) | payer MEDICARE, MEDICAID ==
[2018-07-12 07:54] VITALS: BP 110/80
[2018-07-12 08:05] LABS: Influenza A Molecular POSITIVE (Negative)
--- NOTE | 2018-07-12 08:18 | UC ---
FLU HPI - HPI Summary HPI Summary: 1 WEEK OF COUGH, CONGESTION, FATIGUE, NAUSEA, ADORNO, ACHINESS, FEVER AND CHILLS. THINKS FEVER BROKE YESTERDAY. NOW FEELING WHEEZY AND SOB. IS A SMOKER. VOICE IS HOARSE. NO FLU SHOT THIS SEASON. - History of Current Complaint Chief Complaint: UCRespiratory Stated Complaint: FLU LIKE SYMP Time Seen by Provider: 07/12/18 07:46 Hx Obtained From: Patient Hx Last Menstrual Period: 06/20/18 Onset/Duration: Gradual Onset, Lasting Days, Still Present Severity Currently: Moderate Severity Initially: Moderate Pain Intensity: 4 Pain Scale Used: 0-10 Numeric Associated Signs & Symptoms: Positive: Fever, Myalgia, Cough, Nasal Congestion, Headache - Allergy/Home Medications Allergies/Adverse Reactions: Allergies Allergy/AdvReac Type Severity Reaction Status Date / Time No Known Allergies Allergy Verified 07/12/18 07:50 Home Medications: Home Medications Please Only [employer] 07/12/18 [History] PMH/Surg Hx/FS Hx/Imm Hx Previously Healthy: Yes - Surgical History Surgical History: Yes Surgery Procedure, Year, and Place: gallbladder, ectopic - Family History Known Family History: Negative: Respiratory Disease, Seizure Disorder - Social History Alcohol Use: Rare Substance Use Type: None Substance Use Comment - Amount & Last Used: states that she uses medical marijuana Smoking Status (MU): Light Every Day Tobacco Smoker Type: Cigarettes Amount Used/How Often: 5-10 sig/day - Immunization History Most Recent Influenza Vaccination: 2017/2017 Most Recent Pneumonia Vaccination: n/a Review of Systems All Other Systems Reviewed And Are Negative: Yes Constitutional: Positive: Fever, Chills, Fatigue ENT: Positive: Nasal Discharge Respiratory: Positive: Shortness Of Breath, Cough, Other - WHEEZE Cardiovascular: Positive: Negative Gastrointestinal: Positive: Nausea Musculoskeletal: Positive: Myalgia Neurological: Positive: Headache Physical Exam Triage Information Reviewed: Yes Appearance: No Pain Distress, Well-Nourished, Ill-Appearing - MODERATE Vital Signs: Initial Vital Signs Temp 98.2 F 07/12/18 07:44 Pulse 88 07/12/18 07:44 Resp 18 07/12/18 07:44 BP 110/80 07/12/18 07:44 Pulse Ox 96 07/12/18 07:44 Laboratory Tests 07/12/18 08:01 Influenza A (Rapid) Positive A Vital Signs Reviewed: Yes Eyes: Positive: Conjunctiva Clear ENT: Positive: Hearing grossly normal, Pharynx normal, TMs normal, Hoarse voice Neck: Positive: Supple, Nontender, No Lymphadenopathy Respiratory: Positive: No respiratory distress, No accessory muscle use, Decreased breath sounds, Wheezing - DIFFUSE Cardiovascular Exam: Normal Abdomen Description: Positive: Soft Musculoskeletal: Positive: No Edema Neurological: Positive: Alert Psychological: Positive: Age Appropriate Behavior Skin: Negative: Rashes Diagnostics - Radiology CXR Radiology Interpretation Completed By: Radiologist Summary of Radiographic Findings: UNREMARKABLE Re-Evaluation - Re-Evaluation First Eval Re-Evaluation Time: 09:30 - FEELS A IT BETTER AFTER 60MG PREDNISONE, DUONEB Change: Improved Flu Course/Dx - Differential Dx/Diagnosis Provider Diagnosis: Influenza A, Bronchospasm Discharge - Sign-Out/Discharge Documenting (check all that apply): Patient Departure All imaging exams completed and their final reports reviewed: Yes - Discharge Plan Condition: Stable Disposition: HOME Prescriptions: Albuterol HFA INHALER* [Ventolin HFA Inhaler*] 2 puff INH Q4H PRN #1 mdi PRN Reason: Shortness Of Breath predniSONE TAB* [Deltasone 20 MG TAB*] 60 mg PO DAILY #12 tab Patient Education Materials: Influenza (ED), COPD (Chronic Obstructive Pulmonary Disease) (ED) Referrals: lEias Heredia MD [Primary Care Provider] - 1 Week Additional Instructions: SWAB POSITIVE FOR INFLUENZA A. OTC MEDS NEEDED FOR FEVER, BODY ACHES. STAY WELL HYDRATED AND RESTED. SEEK FOLLOW-UP IF YOU ARE NOT IMPROVING EXPECTED. TOO LATE FOR TAMIFLU. YOU LIKELY ALSO HAVE COPD GIVEN YOUR YEARS OF SMOKING. AT THE VERY LEAST YOUR AIRWAYS ARE MORE SUSCEPTIBLE TO INFECTION/INFLAMMATION. TAKE PREDNISONE FOR THE NEXT 4 DAYS. ALBUTEROL NEEDED. GO TO THE ER WITHOUT FAIL IF YOU DEVELOP WORSENING FEVER, DIFFICULTY BREATHING OR ANY OTHER CONCERNING SYMPTOMS. - Billing Disposition and Condition Condition: STABLE Disposition: Home
[2018-07-12] MEDS ORDERED: Albuterol 2.5 MG/3 ML NEB.SOL* (0.083%) INH ONE (08:40)
[2018-07-12] MEDS ORDERED: Ipratropium 0.5MG/2.5ML NEB* 0.5 MG/2.5 ML NEB.SOLN INH ONE (08:40)
[2018-07-12] MEDS ORDERED: predniSONE TAB* 20 MG PO ONE (08:40)
== END 2018-07-12 09:45 | disposition home or self-care (01) ==
LOC: UCEAST 07:35
DX: J10.1 Influenza due to other identified influenza virus with other respiratory manifestations (principal); J98.01 Acute bronchospasm; F17.210 Nicotine dependence, cigarettes, uncomplicated
CPT/HCPCS: 71046; 99212; G0463; J7512